=== PATIENT | male | born 1995 | race Caucasian/White ===

== ENCOUNTER 2017-07-18 01:58 | Emergency (ER) | payer BC ==
[~2017-07-18] VITALS: Ht 177.8 cm; Wt 74.8 kg
[~2017-07-18 01:58] MED LIST: CEPH500T7 PO
--- NOTE | 2017-07-18 02:04 | ER Report ---
History and Physical Time Seen By MD: 02:03 HPI/ROS CHIEF COMPLAINT: Residential clearance HISTORY OF PRESENT ILLNESS: 22-year-old male brought in by police for senior living clearance. Patient is to heavy alcohol use. He has heavy odor of EtOH. Slurred speech. He denies injuries. He denies significant past medical history. Patient apparently blew a 0.257 per report. REVIEW OF SYSTEMS: Respiratory: No cough, no dyspnea. Cardiovascular: No chest pain, no palpitations. Gastrointestinal: No vomiting, no abdominal pain. Musculoskeletal: No back pain. Allergies: Coded Allergies: No Known Drug Allergies (Unverified , 07/18/17) Home Meds Discontinued Scripts Cephalexin 500 Mg Tab (KEFLEX 500 MG TAB) 500 Mg Tablet, 500 MG PO Q6H, #28 TAB 0 Refills TAKE ONE TABLET BY MOUTH EVERY SIX HOURS Prov:ROMEO MORRIS MD 12/20/16 Reviewed Nurses Notes: Yes Old Medical Records Reviewed: Yes Constitutional Vital Sign - Last 24 Hours 07/18/17 02:06 Temp 98.4 Pulse 115 Resp 20 B/P (MAP) 156/115 Pulse Ox 91 O2 Delivery Room Air Physical Exam General Appearance: The patient is alert, has no immediate need for airway protection and no current signs of toxicity. Palpation of the head and neck reveal no tenderness or trauma. Patient's blood pressures elevated as well as his heart rate secondary to the anxiety of being arrested. HEENT: Pupils equal and round no injection. Oropharynx without dental trauma Respiratory: Chest is non tender, lungs are clear to auscultation. No chest wall tenderness Cardiac: regular rate and rhythm Gastrointestinal: Abdomen is soft and non tender, no masses, bowel sounds normal. Musculoskeletal: Neck: Neck is supple and non tender. Extremities have full range of motion and are non tender. Skin: No rashes or lesions. DIFFERENTIAL DIAGNOSIS: After history and physical exam differential diagnosis was considered for senior living clearance, polysubstance abuse, alcohol intoxication Medical Decision Making ED Course/Re-evaluation ED Course Patient was admitted to an examination room. H&P was done. The differential diagnoses was considered. On clinical examination. Patient has no apparent injury. He has normal vital signs other than mild elevation of his blood pressure and heart rate secondary to being arrested. Patient denies significant past medical history. He is medically cleared for senior living admission. Decision to Disposition Date: Jul 18, 2017 Decision to Disposition Time: 02:09 Depart Departure Latest Vital Signs Vital Signs Date Time Temp Pulse Resp B/P (MAP) Pulse Ox O2 Delivery O2 Flow Rate FiO2 07/18/17 02:06 98.4 115 20 156/115 91 Room Air Impression: Primary Impression: Medical clearance for incarceration Additional Impression: Alcohol intoxication Condition: Improved Disposition: [facility] TO GROUP HOME/CORRECTIONAL F Patient Instructions: Alcohol Intoxication (ED) Additional Instructions: Medical clear for senior living admission Problem Qualifiers Additional Impression: Alcohol intoxication Complication of substance-induced condition: uncomplicated Qualified Codes: F10.920 - Alcohol use, unspecified with intoxication, uncomplicated KENZIE ROCHA DO Jul 18, 2017 02:04
[2017-07-18 02:06] VITALS: BP 156/115
== END 2017-07-18 02:20 ==
LOC: ER 02:07
DX: F10.920 Alcohol use, unspecified with intoxication, uncomplicated (principal)
CPT/HCPCS: 99281